=== PATIENT | female | born 1945 | race Caucasian/White ===

== ENCOUNTER → 2016-12-06 | Outpatient (CLI) | payer OTHER ==
--- NOTE | 2016-12-06 12:46 | MAMMOGRAPHY REPORT ---
BILATERAL DIGITAL SCREENING MAMMOGRAM WITH CAD: 12/06/2016 CLINICAL HISTORY: Routine screening. Patient has no complaints. TECHNIQUE: Current study was also evaluated with a Computer Aided Detection (CAD) system. Bilatera l CC and MLO views were obtained. COMPARISON: Comparison is made to exams dated: 12/05/2015 mammogram, 09/30/2013 mammogram, 10/03/2014 mammogram, 09/01/2012 mammogram, and 01/17/2010 mammogram - [facility]. BREAST COMPOSITION: There are scattered areas of fibroglandular density in both breasts. FINDINGS: No suspicious masses, calcifications, or areas of architectural distortion are noted in e ither breast. There has been no significant interval change compared to prior exams. IMPRESSION: ACR BI-RADS CATEGORY 1: NEGATIVE There is no mammographic evidence of malignancy. A 1 year screening mammogram is recommended. The p atient will receive written notification of the results. Approximately 10% of breast cancers are not detected with mammography. A negative mammographic repor t should not delay biopsy if a clinically suggestive mass is present. Idalmis Urbina M.D. ah/:12/06/2016 12:12:41 Thermostat Repairer: Ammy Gomez RT(R)(M), [facility] letter sent: Normal 1/2 BI-RADS Code: ACR BI-RADS Category 1: Negative
== END | disposition home or self-care (01) ==
LOC: C.MAMM 11:22
PROVIDERS: ATTEND Obstetrics & Gynecology
DX: Z12.31 Encounter for screening mammogram for malignant neoplasm of breast (principal)

== ENCOUNTER → 2017-02-06 | Outpatient (CLI) | payer OTHER ==
[2017-02-06 13:36] LABS: BLOOD UREA NITROGEN 21 mg/dl (7-18); CALCIUM 9.1 mg/dl (8.5-10.1); CARBON DIOXIDE 27 mmol/L (21-32); CHLORIDE 105 mmol/L (98-107); CHOLESTEROL 210 mg/dl (0-200); CREATININE 0.84 mg/dl (0.60-1.20); GLUCOSE 87 mg/dl (70-99); SODIUM 140 mmol/L (136-145); TRIGLYCERIDES 58 mg/dl (0-150); VERY LOW DENSITY LIPOPROT CALC 12 mg/dl
[2017-02-06 13:46] LABS: HDL CHOLESTEROL 70 mg/dl; LDL CHOLESTEROL CALCULATED 128 mg/dl
== END | disposition home or self-care (01) ==
LOC: C.LABPVFM 09:30
PROVIDERS: ATTEND Nurse Practitioner Family
DX: E55.9 Vitamin D deficiency, unspecified (principal)

== ENCOUNTER → 2017-03-07 | Outpatient (CLI) | payer OTHER ==
--- NOTE | 2017-03-07 09:30 | DIAGNOSTIC IMAGING REPORT ---
THYROID ULTRASONOGRAPHY CLINICAL HISTORY: Nontoxic multinodular goiter COMPARISON STUDY: 03/25/2016 FINDINGS: The right lobe of the thyroid measures 6.4 x 2.6 x 3.1 cm. The left lobe of the thyroid measures 5.4 x 2.2 x 2.4 cm. There are in numerable bilateral coalescent thyroid nodules. Many nodules demonstrate colloid artifact. The largest nodule in the right measures 24 x 12 x 20 mm. This remain similar in size to the preceding study. IMPRESSION: Stable multinodular thyroid goiter. Other than size, none of the nodules demonstrate suspicious morphologic features Electronically signed by: Gibson Marroquin M.D. 03/07/2017 9:27 AM Dictated Date/Time: 03/07/2017 9:25 AM
== END | disposition home or self-care (01) ==
LOC: C.ULTR 08:53
PROVIDERS: ATTEND Physician Assistant Medical
DX: E04.2 Nontoxic multinodular goiter (principal)

== ENCOUNTER → 2017-11-27 | Outpatient (CLI) | payer OTHER ==
--- NOTE | 2017-11-27 10:41 | DIAGNOSTIC IMAGING REPORT ---
L-SPINE MIN 4 VIEWS ROUTINE HISTORY: Pain LUMBAR STRAIN COMPARISON: None. FINDINGS: Moderate compression deformity superior endplate L1. This radiographically appears old. Mild degenerative disc change throughout. No additional compression deformity of the lumbar spine. Mild scoliosis. Mild wedge deformity superior endplate T11 of indeterminate age. No evidence for subluxation. Mild osteophytic changes throughout. No subluxation. IMPRESSION: 1. Moderate compression deformity superior endplate L1 considerable old. 2. Mild wedge deformity superior endplate T11 considered indeterminate in reference to age. 3. Mild degenerative disc change throughout The above report was generated using voice recognition software. It may contain grammatical, syntax or spelling errors. Electronically signed by: Nakul Milan M.D. 11/27/2017 10:40 AM Dictated Date/Time: 11/27/2017 10:37 AM
== END | disposition home or self-care (01) ==
LOC: C.RADPV 10:09
PROVIDERS: ATTEND Family Medicine
DX: S39.012A Strain of muscle, fascia and tendon of lower back, initial encounter (principal); X58.XXXA Exposure to other specified factors, initial encounter; M53.86 Other specified dorsopathies, lumbar region

== ENCOUNTER → 2018-03-06 | Outpatient (CLI) | payer OTHER ==
--- NOTE | 2018-03-06 15:37 | MAMMOGRAPHY REPORT ---
BILATERAL DIGITAL SCREENING MAMMOGRAM TOMOSYNTHESIS WITH CAD: 03/06/2018 CLINICAL HISTORY: Routine screening. Patient has no complaints. TECHNIQUE: Breast tomosynthesis in addition to standard 2D mammography was performed. Current study was also evaluated with a Computer Aided Detection (CAD) system. COMPARISON: Comparison is made to exams dated: 12/06/2016 mammogram, 12/05/2015 mammogram, 10/03/2014 [facility] mogram, 09/30/2013 mammogram, 09/01/2012 mammogram, and 01/17/2010 mammogram - [facility]. BREAST COMPOSITION: There are scattered areas of fibroglandular density in both breasts. FINDINGS: No suspicious masses, calcifications, or areas of architectural distortion are noted in ei ther breast. There has been no significant interval change compared to prior exams. IMPRESSION: ACR BI-RADS CATEGORY 1: NEGATIVE There is no mammographic evidence of malignancy. A 1 year screening mammogram is recommended. The pa tient will receive written notification of the results. Approximately 10% of breast cancers are not detected with mammography. A negative mammographic report should not delay biopsy if a clinically suggestive mass is present. Idalmis Urbina M.D. /:03/06/2018 13:31:07 Electric Shovel Operator: Karma Glynn [facility] letter sent: Normal 1/2 BI-RADS Code: ACR BI-RADS Category 1: Negative
== END | disposition home or self-care (01) ==
LOC: C.MAMM 12:44
PROVIDERS: ATTEND Family Medicine
DX: Z12.31 Encounter for screening mammogram for malignant neoplasm of breast (principal)

== ENCOUNTER → 2018-04-06 | Outpatient (CLI) | payer OTHER ==
--- NOTE | 2018-04-06 11:00 | DIAGNOSTIC IMAGING REPORT ---
THYROID ULTRASONOGRAPHY CLINICAL HISTORY: E04.2 nontoxic multinodular goiter COMPARISON STUDY: 03/07/2017 FINDINGS: The right lobe measures 64 x 37 x 27 mm. The left lobe measures 61 x 24 x 23 mm. Both glands are heterogeneous in echotexture. There are innumerable bilateral thyroid nodules. The largest nodule on the right measures 28 x 24 x 14 mm. The largest nodule on the left measures 23 x 11 x 11 mm. Multiple nodules demonstrate colloid artifact. IMPRESSION: Essentially stable multinodular thyroid goiter. Electronically signed by: Gibson Marroquin M.D. 04/06/2018 10:58 AM Dictated Date/Time: 04/06/2018 10:55 AM
== END | disposition home or self-care (01) ==
LOC: C.ULTR 10:15
DX: E04.2 Nontoxic multinodular goiter (principal)

== ENCOUNTER → 2018-04-06 | Outpatient (CLI) | payer OTHER ==
[2018-04-06 13:15] LABS: ALBUMIN 3.6 gm/dl (3.4-5.0); ALT/SGPT 23 U/L (12-78); AST/SGOT 19 U/L (15-37); BLOOD UREA NITROGEN 14 mg/dl (7-18); CALCIUM 8.5 mg/dl (8.5-10.1); CARBON DIOXIDE 29 mmol/L (21-32); CREATININE 0.97 mg/dl (0.60-1.20); GLUCOSE 95 mg/dl (70-99); POTASSIUM 3.9 mmol/L (3.5-5.1); SODIUM 136 mmol/L (136-145)
[2018-04-06 13:26] LABS: ALKALINE PHOSPHATASE 57 U/L (45-117); CHOLESTEROL 197 mg/dl (0-200); LDL CHOLESTEROL CALCULATED 112 mg/dl; TOTAL PROTEIN 7.6 gm/dl (6.4-8.2)
== END | disposition home or self-care (01) ==
LOC: C.LABPVFM 08:49
PROVIDERS: ATTEND Family Medicine
DX: I10 Essential (primary) hypertension (principal); E05.90 Thyrotoxicosis, unspecified without thyrotoxic crisis or storm; E78.5 Hyperlipidemia, unspecified; M54.5 Low back pain

== ENCOUNTER → 2018-04-09 | Outpatient (CLI) | payer OTHER ==
[~2018-04-09] MED LIST: AMLO-110 PO; CALC600T9 PO; METH-589 PO
[2018-04-09 12:09] LABS: BASO % 0.3 %; BASO ABS # 0.01 K/uL (0-0.2); EOS ABS # 0.08 K/uL (0-0.5); HEMATOCRIT 39.7 % (37-47); HEMOGLOBIN 13.3 g/dL (12.0-16.0); LYMPH % 28.4 %; LYMPH ABS # 1.11 K/uL (1.2-3.4); MEAN CELL VOLUME 96.1 fL (80-100); MEAN CORPUSCULAR HEMOGLOBIN 32.2 pg (25-34); MEAN CORPUSCULAR HGB CONC 33.5 g/dl (32-36); MEAN PLATELET VOLUME 9.5 fL (7.4-10.4); MONO % 12.3 %; MONO ABS # 0.48 K/uL (0.11-0.59); NEUT ABS # 2.23 K/uL (1.4-6.5); PLATELET COUNT 238 K/uL (130-400); RED CELL DISTRIBUTION WIDTH CV 12.7 % (11.5-14.5); RED CELL DISTRIBUTION WIDTH SD 45.2 fL (36.4-46.3); WHITE BLOOD COUNT 3.91 K/uL (4.8-10.8)
--- NOTE | 2018-04-09 12:09 | DIAGNOSTIC IMAGING REPORT ---
CHEST 2 VIEWS ROUTINE CLINICAL HISTORY: PRE OP COMPARISON STUDY: No previous studies for comparison. FINDINGS: The bones soft tissues and hemidiaphragms are normal. The cardiomediastinal silhouette is normal. The lungs are clear. The pulmonary vasculature is normal. Lateral projection suggests a moderate compression deformity of L1 of indeterminate age. IMPRESSION: Negative chest. Moderate compression deformity of L1 of indeterminate age, with a loss of vertebral body height of 50%. The above report was generated using voice recognition software. It may contain grammatical, syntax or spelling errors. Electronically signed by: Nakul Milan M.D. 04/09/2018 12:08 PM Dictated Date/Time: 04/09/2018 12:07 PM
[2018-04-09 12:21] LABS: INR 0.9 (0.9-1.1); PTT PATIENT 27.3 SECONDS (21.0-31.0)
[2018-04-09 12:43] LABS: BLOOD UREA NITROGEN 18 mg/dl (7-18); CARBON DIOXIDE 31 mmol/L (21-32); CREATININE 0.81 mg/dl (0.60-1.20); GLUCOSE 84 mg/dl (70-99); POTASSIUM 3.7 mmol/L (3.5-5.1); SODIUM 137 mmol/L (136-145)
== END | disposition home or self-care (01) ==
LOC: C.CPL 11:26
PROVIDERS: ATTEND Orthopaedic Surgery Orthopaedic Surgery of the Spine
DX: Z01.810 Encounter for preprocedural cardiovascular examination (principal); Z01.811 Encounter for preprocedural respiratory examination; Z01.812 Encounter for preprocedural laboratory examination; S32.010A Wedge compression fracture of first lumbar vertebra, initial encounter for closed fracture; X58.XXXA Exposure to other specified factors, initial encounter

== ENCOUNTER → 2018-04-16 | Day surgery (SDC) | payer OTHER ==
[2018-04-09 14:34] VITALS: BMI 26.0
--- NOTE | 2018-04-15 20:39 | HISTORY & PHYSICAL EXAMINATION ---
DATE OF ADMISSION: 04/16/2018 Surgery tomorrow an L1 kyphoplasty. CHIEF COMPLAINT: Back pain, lower extremity difficulty, paresthesias, numbness and tingling, and working diagnosis of an L1 compression fracture. PAST MEDICAL HISTORY: Negative for hypertension, COPD, angina, anxiety, diabetes, all negative. No anemias. MEDICATIONS: Antihypertensive and a medication unknown for hypothyroid. SOCIAL HISTORY: Nonsmoker, non-ETOH user. PAST SURGICAL HISTORY: Eye surgery from macular degeneration. ALLERGIES: Negative. REVIEW OF SYSTEMS: Denies any blurred vision, double vision, tinnitus, or vertigo. Negative for chest pain, angina. Negative for asthma, wheezing, shortness of breath. No nausea or vomiting. No urgency or frequency and no lower extremity difficulties. Musculoskeletal chief complaint positive for musculoskeletal back pain. PHYSICAL EXAMINATION: VITAL SIGNS: Blood pressure 130/80, pulse 80, respiratory rate 16 beats per minute. CARDIAC: Normal S1, S2, no ectopy, no arrhythmias. LUNGS: Clear. ABDOMEN: Soft, nontender, no referred pain. NEUROLOGIC: Intact, 5/5 strength, good sensation and motor ability. MRI and plain x-rays reviewed in great detail. ASSESSMENT: L1 compression fracture. PLAN: Includes kyphoplasty L1 vertebrae. [facility]
[~2018-04-16] VITALS: Ht 167.6 cm; Wt 72.7 kg
[~2018-04-16] MED LIST changes: +AMLODIPINE BESYLATE 5 MG TAB PO SCH; +ATROPINE SULFATE 0.1 MG/ML 5ML SYR IV PRN; +BUPIVACAINE 0.5 % 5 MG/1 ML MPF 30ML VIAL ONE; +CALCIUM CARBONATE VITAMIN D PO SCH; +CEFAZOLIN 2000MG IV PUSH 15 ML IV SCH; +CONRAY 60% 50 ML VIAL ONE; +DEXAMETHASONE SOD INJ 4 MG/ML VIAL ONE; +EpHEDrine SULFATE 50MG/5ML SYR ONE; +EpHEDrine SULFATE INJ 50 MG/ML AMP IV PRN; +EpHEDrine SULFATE INJ 50 MG/ML AMP ONE; +EpINEphrine HCL INJ 1 MG/ML 1ML SYRINGE ONE; +FENTANYL CITRATE INJ 50 MCG/1 ML 2 ML VIAL IV PRN; +FENTANYL CITRATE INJ 50 MCG/1 ML 2 ML VIAL ONE; +GLYCOPYRROLATE INJ 0.2 MG/ML VIAL ONE; +HYDR-5688 PO; +HYDROmorphone INJ 0.5 MG/0.5 ML SYR IV PRN; +LACTATED RINGER'S 1000ML 1,000 ML IV SCH; +LARYING-O-JET KIT (LTA) ONE; +LIDOCAINE HCL 2% 2 ML VIAL (20MG/ML) ONE; +METHIMAZOLE 5 MG TAB PO SCH; +MIDAZOLAM HCL 1 MG/ML 2ML VIAL ONE; +NEOSTIGMINE METHYLSULFATE 5 MG/5 ML SYR ONE; +NSS 1000ML IV SCH; +ONDANSETRON INJ 2 MG/ML 2 ML VIAL IV PRN; +ONDANSETRON INJ 2 MG/ML 2 ML VIAL ONE; +OXYCODONE/ACETAMINOPHEN 5-325 TAB PO PRN; +PHENYLEPHRINE 100MCG/ML 5ML SYR IV PRN; +PROPOFOL IV EMULSION 10 MG/ML 20 ML VIAL ONE; +ROCURONIUM BROMIDE 10 MG/ML 5 ML VIAL ONE; +SODIUM CHLORIDE 0.9% 1000ML 1,000 ML IV SCH
[2018-04-16 10:00] VITALS: BP 171/77; PULSE 72; TEMP 36.7; O2SAT 96; Ht 167.6 cm; Wt 72.7 kg
--- NOTE | 2018-04-16 12:09 | History & Physical Bridge Note ---
H&P Re-Evaluation Bridge Note: I have examined the patient, reviewed the History & Physical and in the interval since the performance of the History & Physical I have noted the following changes of clinical significance: No changes noted
--- NOTE | 2018-04-16 13:32 | [facility] Post Operative Brief Note ---
Immediate Operative Summary Operative Date April 16, 2018. Pre-Operative Diagnosis L1 compression fracture Post-Operative Diagnosis L1 compression fracture Procedure(s) Performed L1 kyphoplasty Surgeon Dr. Martin Train Operations Supervisor Surgeon(s) Casimiro Farrell PA-C Estimated Blood Loss 10 ml Findings Consistent with Post-Op Diagnosis Specimens none per surgeon Anesthesia Type General Complication(s) none
--- NOTE | 2018-04-16 13:35 | Discharge Instructions ---
Discharge Instructions Date of Service April 16, 2018. Admission Reason for Admission: L1 Compression Fracture Discharge Discharge Diagnosis / Problem: SAME ABOVE Discharge Goals Goal(s): Decrease discomfort, Improve function Activity Recommendations Activity Limitations: as noted below Lifting Limitations: until after follow-up appointment Exercise/Sports Limitations: until after follow-up appointment Shower/Bathe: tomorrow . Instructions / Follow-Up Instructions / Follow-Up MEDICATIONS: Please take your prescriptions as instructed at your pre-op appointment. SPECIAL CARE: The following information is intended to answer some of the common questions and concerns regarding your surgery. Each patient is an individual and receives individual counselling throughout the course of treatment, from diagnosis to surgery all the way through recovery. What follows is not an exhaustive list, but should be a useful guide to some of the common questions and concerns patients have regarding their surgeries. These are not provided to keep you from calling us; rather, they give you something accurate and concrete to reference as you recover from your procedure. If you need us, we are available to you. As always, if you are not sure about something, call us at [phone]. MEDICAL EMERGENCIES: For these conditions, call 911 or go to your local hospital-based Emergency Department - not [facility] or equivalent. * Paralysis * Severe chest pain or difficulty breathing * Swelling or redness of either leg Spine procedures can be rather complex and though complications are rare, they do occur. In such cases, effective advice regarding emergency situations cannot always be addressed over the telephone. You may be referred to the emergency department for more effective management of your problem. Activity Limitations: It is important to give your body time to heal, so please limit your activities : * In general, don't do anything that moves your spine too much. You should avoid contact sports, twisting or heavy lifting while you recover. * 5-10 pounds is all you should attempt to lift. * You should not plan on driving for approximately 3 weeks and you should avoid traveling more than 30-45 minutes at a time. Longer trips should be broken down with walking breaks spaced appropriately. * Physical therapy is not usually required. * Walking and good posture practices will help you recover and regain your function. * Avoid straining or sudden changes in position. * In general, the goal is to take it easy and recover. Don't cause any new problems. Just relax. Showers: * Do not take a bath, use a Jacuzzi or hot tub or otherwise submerge your incision. * It is usually safe to take a shower 4-5 days after your surgery. * Your incision does not require any special creams or ointments. * Simply clean it with soap and water, dry and re-dress with a clean bandage afterwards. Incision: * Keep incision clean, dry and protected until your first follow-up appointment. * Some amount of drainage and redness is normal. Any drainage should be fairly clear and not have a foul odor. * If you feel anything is wrong or you have excessive drainage, please call us. * Your stitches and dwayne will be removed 10-14 days after your surgery. At the time of your first post-op visit. * Neck surgeries are typically closed with a suture underneath the skin. The steri-strips over the incision should be maintained until we see you in the office. Bracing: * You may be provided with a back or neck brace to encourage good posture and prevent injury. It will remind you not to do too much as you heal and will alert others to the fact that you have had a surgery. * Back braces may be removed for showers and when you are resting at home. They must be worn when you are walking around for any period of time or for travel. * For neck surgery, you will likely be provided with two cervical collars. The soft collar (Ola or foam rubber) is worn most commonly throughout the day and while sleeping. The plastic collar (provided at the hospital) is for showering/bathing. * Except while eating, collars should remain in place. More specifically, bracing is provided for a purpose and should be worn. * Please obtain your brace or collars prior to your operation and bring them to the hospital with you on the day of surgery. * You should also bring your collars to your post-op appointment with Dr. Martin. You should always take good care of your body and practice healthy habits, especially following surgery. You should: * Follow your doctor's treatment plan * Sit and stand properly with good posture (ears over shoulders, shoulders over hips) Don't slouch * Learn to lift correctly * Exercise regularly (low-impact aerobic exercise is especially good, but check with your doctor first) * Generally, be up and walking for 5-10 minutes at a time at least 3-4 times per day from the day you get home * Increasing walking to tolerance until you can walk for 20-30 minutes at a time * Attain and maintain a healthy body weight * Eat healthy foods ( a well-balanced, low-fat diet rich in fruits and vegetables) and get enough calcium * Avoid excessive use of alcohol When to call our office - If you notice any of the following: * Increased pain not relieve by pain medicine * Fevers greater then 100 degrees F, chills or flu symptoms * Increased redness around incision * Drainage from the incision that is not clear * Any foul smelling drainage * Swelling or fluid collection beneath the skin Miscellaneous: * In the hospital, you may be given a walker or cane for support while walking. These are temporary needs and are intended to prevent injuries due to falls. You may discontinue them when you feel strong and steady enough on your feet. * Sleep in a comfortable position. We find that many patients find a lounge chair or recliner with several pillows to be beneficial in the early post-operative period. * The support stockings should be used for 7-10 days and may be discontinued when you are back to walking more and conducting usual household activities. No problem is insignificant. We are here to help you and get you well. Contact us at [phone]. Definitions: Foraminotomy: If part of the disc or a bone spur (osteophyte) is pressing on a nerve as it leaves the vertebra (through an exit called the foramen), a foraminotomy may be done. Otomy means "to make an opening." A foraminotomy is making the opening of the foramen larger, so the nerve can exit without being compressed. Laminotomy: Similar to the foraminotomy, a laminotomy makes a larger opening, this time in your bony plate protecting your spinal canal and spinal cord (the lamina). The lamina may be pressing on your nerve, so the surgeon may make more room for the nerves using a laminotomy. Laminectomy: Sometimes, a laminotomy is not sufficient. The surgeon may need to remove all or part of the lamina. This procedure is called a laminectomy. This can often be done at many levels without any harmful effects. Current Hospital Diet Patient's current hospital diet: Discharge Diet Recommended Diet: Regular Diet Procedures Procedures Performed: L1 kyphoplasty Pending Studies Studies pending at discharge: no Laboratory Results Lipid Panel Test 04/06/18 08:53 Range/Units Triglycerides Level 68 0-150 mg/dl Cholesterol Level 197 0-200 mg/dl HDL Cholesterol 71 mg/dl Cholesterol/HDL Ratio 2.8 LDL Cholesterol, Calculated 112 mg/dl Medical Emergencies . Who to Call and When: Medical Emergencies: If at any time you feel your situation is an emergency, please call 911 immediately. . Non-Emergent Contact Non-Emergency issues call your: Primary Care Provider . "Provider Documentation" section prepared by Casimiro Farrell. .
--- NOTE | 2018-04-16 14:06 | DIAGNOSTIC IMAGING REPORT ---
LUMBAR SPINE 2 OR 3 VIEW HISTORY: 73 years-old Female L1 KYPHOPLASTY acute compression deformity of the L1 vertebral body COMPARISON: MRI lumbar spine 04/03/2018 TECHNIQUE: 2 spot fluoroscopic images of the lumbar spine were obtained utilizing a total of 46.9 seconds of fluoroscopy time. FINDINGS: Images demonstrate placement of radiopaque cement material within the acute compression deformity at L1 status post kyphoplasty. Material appears to be contained within the vertebral body without extravasation. Multilevel spondylitic spurring is noted. IMPRESSION: Fluoroscopic assistance as above. Please see procedural report for further details. The above report was generated using voice recognition software. It may contain grammatical, syntax or spelling errors. Electronically signed by: Tarik Khoury M.D. 04/16/2018 2:05 PM Dictated Date/Time: 04/16/2018 2:02 PM
--- NOTE | 2018-04-16 14:22 | Anesthesiology Progress Note ---
Anesthesia Post Op Note Date & Time April 16, 2018 at 14:21 Vital Signs Vital Signs Past 12 Hours Date Time Temp Pulse Resp B/P (MAP) Pulse Ox O2 Delivery O2 Flow Rate FiO2 04/16/18 13:47 79 14 100 04/16/18 13:47 79 14 04/16/18 13:46 156/73 04/16/18 13:42 82 14 04/16/18 13:42 82 14 100 04/16/18 13:41 163/71 04/16/18 13:37 82 15 100 04/16/18 13:37 82 15 04/16/18 13:36 161/67 04/16/18 13:32 82 13 04/16/18 13:32 82 13 100 04/16/18 13:31 156/65 04/16/18 13:28 139/66 04/16/18 13:27 36.1 90 16 139/66 100 Oxymask 8 04/16/18 10:00 36.7 72 18 171/77 (108) 96 Room Air Notes Mental Status: alert / awake / arousable, participated in evaluation Pt Amnestic to Procedure: Yes Nausea / Vomiting: adequately controlled Pain: adequately controlled Airway Patency, RR, SpO2: stable & adequate BP & HR: stable & adequate Hydration State: stable & adequate Anesthetic Complications: no major complications apparent
[2018-04-16 15:40] VITALS: BP 156/84; PULSE 75; TEMP 36.4; O2SAT 98
--- NOTE | 2018-04-16 15:41 | OPERATIVE REPORT ---
DATE OF OPERATION: 04/16/2018 PREOPERATIVE DIAGNOSIS: L1 compression fracture. POSTOPERATIVE DIAGNOSIS: L1 compression fracture. PROCEDURE: Kyphoplasty L1 vertebrae. SURGEON: Deshaun Martin DO TUNNEL ELASTIC OPERATOR ZIGZAG: Casimiro Farrell PA-C. COMPLICATIONS: Zero. BLOOD LOSS: 5 mL DESCRIPTION OF PROCEDURE: Patient was taken to the operating room and general intubated anesthetic provided, carefully placed prone on the Roberto table. We scrubbed, prepped and draped sterile. We engaged the L1 vertebral body in the superior lateral aspect of the pedicle bilaterally. I was able to advance the trocar then the drill and then the balloon. I was able to inflate the vertebra. I felt we had nice reduction. We put 2.5 mL of methyl methacrylate in the left hand side pedicle and 2 on the right hand side. I was pleased with the fill. The x-rays looked superb. We irrigated and closed. Sterile dressings applied. The patient extubated to PACU stable. There were no apparent complications. I attest to the content of the Intraoperative Record and any orders documented therein. Any exception s are noted below.
== END | disposition home or self-care (01) ==
LOC: C.ACU 09:30
PROVIDERS: ATTEND Orthopaedic Surgery Orthopaedic Surgery of the Spine
DX: M48.56XA Collapsed vertebra, not elsewhere classified, lumbar region, initial encounter for fracture (principal); I10 Essential (primary) hypertension; E03.9 Hypothyroidism, unspecified; Z85.828 Personal history of other malignant neoplasm of skin; Z86.59 Personal history of other mental and behavioral disorders

== ENCOUNTER → 2018-06-25 | Outpatient (CLI) | payer OTHER ==
[~2018-06-25] MED LIST changes: -AMLO-110 PO; +AMLO5TAB3 PO; -AMLODIPINE BESYLATE 5 MG TAB PO SCH; -ATROPINE SULFATE 0.1 MG/ML 5ML SYR IV PRN; -BUPIVACAINE 0.5 % 5 MG/1 ML MPF 30ML VIAL ONE; -CALCIUM CARBONATE VITAMIN D PO SCH; -CEFAZOLIN 2000MG IV PUSH 15 ML IV SCH; -CONRAY 60% 50 ML VIAL ONE; -DEXAMETHASONE SOD INJ 4 MG/ML VIAL ONE; -EpHEDrine SULFATE 50MG/5ML SYR ONE; -EpHEDrine SULFATE INJ 50 MG/ML AMP IV PRN; -EpHEDrine SULFATE INJ 50 MG/ML AMP ONE; -EpINEphrine HCL INJ 1 MG/ML 1ML SYRINGE ONE; -FENTANYL CITRATE INJ 50 MCG/1 ML 2 ML VIAL IV PRN; -FENTANYL CITRATE INJ 50 MCG/1 ML 2 ML VIAL ONE; -GLYCOPYRROLATE INJ 0.2 MG/ML VIAL ONE; -HYDR-5688 PO; -HYDROmorphone INJ 0.5 MG/0.5 ML SYR IV PRN; +IBUP-103 PO; +IBUP200C80 PO; -LACTATED RINGER'S 1000ML 1,000 ML IV SCH; -LARYING-O-JET KIT (LTA) ONE; -LIDOCAINE HCL 2% 2 ML VIAL (20MG/ML) ONE; -METHIMAZOLE 5 MG TAB PO SCH; -MIDAZOLAM HCL 1 MG/ML 2ML VIAL ONE; -NEOSTIGMINE METHYLSULFATE 5 MG/5 ML SYR ONE; -NSS 1000ML IV SCH; -ONDANSETRON INJ 2 MG/ML 2 ML VIAL IV PRN; -ONDANSETRON INJ 2 MG/ML 2 ML VIAL ONE; -OXYCODONE/ACETAMINOPHEN 5-325 TAB PO PRN; -PHENYLEPHRINE 100MCG/ML 5ML SYR IV PRN; -PROPOFOL IV EMULSION 10 MG/ML 20 ML VIAL ONE; -ROCURONIUM BROMIDE 10 MG/ML 5 ML VIAL ONE; -SODIUM CHLORIDE 0.9% 1000ML 1,000 ML IV SCH
== END | disposition home or self-care (01) ==
LOC: C.MAMM 09:56
PROVIDERS: ATTEND Family Medicine
DX: G95.20 Unspecified cord compression (principal); S32.009A Unspecified fracture of unspecified lumbar vertebra, initial encounter for closed fracture; X58.XXXA Exposure to other specified factors, initial encounter; M85.89 Other specified disorders of bone density and structure, multiple sites